=== PATIENT | male | born 1985 | race African-American/Black ===

== ENCOUNTER 2017-12-26 02:46 | Emergency (ER) | payer BC, OTHER ==
[2017-12-26 03:35] LABS: Mean Corpuscular HGB CONC 33.4 g/dL (32.0-36.0); Mean Corpuscular Hemoglobin 30.5 pg (27.0-31.0); Mean Corpuscular Volume 91.2 fl (80.0-94.0); Mean Platelet Volume 8.3 fL (7.4-10.4); Platelet Count 160 thou/uL (130-400); RBC Distribution Width 12.5 % (11.5-14.5); White Blood Cell (WBC) Count 5.5 thou/uL (4.8-10.8)
[2017-12-26 03:50] LABS: Eosinophils 6 % (0-10); Lymphocytes 51 % (21-51); MDiff Complete? YES; Monocytes 17 % (0-10); Neutrophil 24 % (42-75); Reactive Lymphocytes 2 % (0-10)
[2017-12-26 03:55] LABS: ALT (SGPT) 25 U/L (8-55); AST (SGOT) 27 U/L (5-34); Albumin 3.9 g/dL (3.5-5.0); Alkaline Phosphatase 89 U/L (40-150); Anion Gap 13 mmol/L (10-20); BUN (Urea Nitrogen) 13 mg/dL (8.9-20.6); Bilirubin, Total 0.2 mg/dL (0.2-1.2); Calc. Creatinine Clearance 0 mL/min (70-130); Calcium 9.2 mg/dL (7.8-10.44); Carbon Dioxide 24 mmol/L (22-29); Chloride 105 mmol/L (98-107); Estimated GFR-MDRD Greater than 90; Globulin 3.9 g/dL (2.4-3.5); Glucose 119 mg/dL (70-105); Potassium 3.9 mmol/L (3.5-5.1); Protein, Total 7.8 g/dL (6.0-8.3); Sodium 138 mmol/L (136-145)
[2017-12-26 04:00] LABS: CKMB 3.6 ng/mL (0-6.6); Troponin I 0.019 ng/mL (< 0.028)
[2017-12-26] MEDS ORDERED: hydrALAZINE 20 MG/ML VIAL ONE (05:38)
== END 2017-12-26 06:28 | disposition home or self-care (01) ==
LOC: ERS 02:46
DX: I10 Essential (primary) hypertension (principal); Z87.891 Personal history of nicotine dependence
CPT/HCPCS: 80053; 82553; 84484; 85025; 93005; 96374; J0360

== ENCOUNTER 2022-11-11 18:00 | Outpatient (CLI) | payer BC | END 2022-11-11 18:01 | disposition home or self-care (01) | LOC: SLEEPLAB 18:00 | PROVIDERS: ATTEND Family Medicine | DX: G47.33 Obstructive sleep apnea (adult) (pediatric) (principal); R53.83 Other fatigue; G47.10 Hypersomnia, unspecified; E66.9 Obesity, unspecified; I10 Essential (primary) hypertension; G47.00 Insomnia, unspecified; Z68.43 Body mass index [BMI] 50.0-59.9, adult | CPT/HCPCS: 95800 ==